=== PATIENT | female | born 1975 | race Asian ===

== ENCOUNTER 2016-12-16 09:17 | Outpatient (CLI) | payer OTHER ==
--- NOTE | 2016-12-16 12:46 | Mammography Report ---
Bilateral digital screening mammogram with CAD. Comparison study is dated September 29, 2012. Findings: There is intermediate density of the fibroglandular tissue. In the upper-outer quadrant of the left breast, there is a focal area of questionable architectural distortion. No suspicious calcifications or other focal findings are seen. The right breast is unremarkable. Impression: Possible architectural distortion, upper-outer quadrant of the left breast. BI-RADS code: 0. Recommendation: Spot compression images, 90 degree view, and targeted left breast ultrasound.
== END 2016-12-16 09:18 | disposition home or self-care (01) ==
LOC: MAMMO 09:17
PROVIDERS: ATTEND General Practice
DX: Z12.31 Encounter for screening mammogram for malignant neoplasm of breast (principal)
CPT/HCPCS: 77067; G0202

== ENCOUNTER 2017-01-08 10:52 | Outpatient (CLI) | payer OTHER ==
--- NOTE | 2017-01-08 13:30 | Mammography Report ---
Diagnostic left mammogram and targeted left breast ultrasound. History: Recall for left asymmetry. Findings: Spot compression images and straight no evidence of a mass or definite architectural distortion in the area of interest in the upper outer quadrant. Sonographic evaluation of the upper outer quadrant demonstrates no evidence of a cystic or solid mass. An axillary lymph node measuring 1.9 x 0.7 cm is incidentally noted. Impression: No suspicious findings. BI-RADS code: 2. Recommendation: Annual screening.
== END 2017-01-08 10:53 | disposition home or self-care (01) ==
LOC: MAMMO 10:52
PROVIDERS: ATTEND General Practice
DX: R92.8 Other abnormal and inconclusive findings on diagnostic imaging of breast (principal)
CPT/HCPCS: 76641; G0206

== ENCOUNTER 2019-02-25 11:37 | Outpatient (CLI) | payer OTHER ==
--- NOTE | 2019-02-25 14:47 | Mammography Report ---
BILATERAL DIGITAL SCREENING MAMMOGRAM with CAD: 02/25/19 11:37:00 CLINICAL: Routine screening. COMPARISON: 12/16/16 FINDINGS: There are bilateral scattered areas of fibroglandular density.No mass, architectural distortion or suspicious calcifications. IMPRESSION: No mammographic evidence of malignancy. BI-RADS CATEGORY: 1 -- Negative RECOMMENDATION: Routine mammographic screening in one year. COMMENT: Patient follow-up letters are generated by our [employer] application.
== END 2019-02-25 11:38 | disposition home or self-care (01) ==
LOC: MAMMO 11:37
PROVIDERS: ATTEND General Practice
DX: Z12.31 Encounter for screening mammogram for malignant neoplasm of breast (principal)
CPT/HCPCS: 77067